=== PATIENT | female | born 1970 | race Caucasian/White ===

== ENCOUNTER → 2016-11-01 16:26 | Outpatient (CLI) | payer BC | END | disposition home or self-care (01) | LOC: D.MAMMO 08:15 | DX: Z12.31 Encounter for screening mammogram for malignant neoplasm of breast (principal) ==

== ENCOUNTER 2016-12-27 08:37 | Outpatient (CLI) | payer BC | END 2016-12-27 13:20 | LOC: D.MAMMO 08:37 | DX: R92.8 Other abnormal and inconclusive findings on diagnostic imaging of breast (principal) ==

== ENCOUNTER → 2017-06-30 13:44 | Outpatient (CLI) | payer BC | END | disposition home or self-care (01) | LOC: D.MAMMO 09:30 | DX: R92.8 Other abnormal and inconclusive findings on diagnostic imaging of breast (principal) ==

== ENCOUNTER 2018-01-05 08:00 | Outpatient (CLI) | payer BC | END 2018-01-05 09:00 | disposition home or self-care (01) | LOC: D.MAMMO 08:00 | DX: R92.8 Other abnormal and inconclusive findings on diagnostic imaging of breast (principal) ==

== ENCOUNTER → 2019-02-05 08:45 | Outpatient (CLI) | payer OTHER | END | disposition home or self-care (01) | LOC: D.RAD 08:45 | PROVIDERS: ATTEND Family Medicine | DX: R13.10 Dysphagia, unspecified (principal) ==

== ENCOUNTER 2019-07-02 05:35 | Day surgery (SDC) | payer OTHER ==
[~2019-07-02] VITALS: Ht 170.2 cm; Wt 111.8 kg
[~2019-07-02 05:35] MED LIST: CLARITIN 10 MG10 MG PO; HYZAAR 50-12.51 TAB PO; OMEPRAZOLE20 M1 PO; SINGULAIR10 MG
[2019-07-02 06:11] LABS: HEMATOCRIT 41.6 % (36.0-48.0); HEMOGLOBIN 14.2 g/dL (12-16); MCH 30.9 pg (26.0-34.0); MCHC 34.1 g/dL (31.0-37.0); MCV 90.4 fL (80.0-100.0); MEAN PLATELET VOLUME 9.7 fL (7.4-10.4); RBC 4.6 10x6/uL (4.00-5.40); RDW 12.3 % (11.5-14.5); WBC 7.5 10x3/uL (4.8-10.8)
[2019-07-02 07:14] VITALS: BP 122/58; BMI 38.6
[2019-07-02 07:39] LABS: HCG URINE NEGATIVE (NEGATIVE)
[2019-07-02 07:40] VITALS: BP 122/58; Ht 170.2 cm; Wt 111.8 kg
--- NOTE | 2019-07-02 10:44 | NUR ---
CARE TEMPORARILY TRANSFERRED TO MICHELLE VENTURA RN
--- NOTE | 2019-07-02 10:46 | NUR ---
CARE ASSUMED FROM YASMINE HILL RN
--- NOTE | 2019-07-02 16:51 | OP ---
PATIENT NAME: NOEMÍ PIZARRO MEDICAL RECORD: [id number] :70 LOCATION:D.OPS ADMISSION DATE: SURGEON: MIGUEL A HARMAN MD DATE OF OPERATION: 07/02/2019 PREOPERATIVE DIAGNOSES: 1. Intractably symptomatic external hemorrhoids. 2. Third degree anal prolapse. 3. Anal skin tag, which mimics a polypoid lesion. POSTOPERATIVE DIAGNOSES: 1. Intractably symptomatic external hemorrhoids. 2. Third degree anal prolapse. 3. Anal skin tag, which mimics a polypoid lesion. 4. Persistent anal prolapse after the procedure for prolapse and hemorrhoids. SURGEON: Miguel A Harman MD LIFE AGENT: None. BLOOD LOSS: 50 cc. ANESTHESIA: General. COMPLICATIONS: None. The risks, possible complications and alternatives to the procedure were explained to the patient. She elects to proceed. The discussion specifically included, but was not limited to, bleeding requiring emergency reoperation, infection, sphincteric rupture, anal stenosis. OPERATIVE COURSE: The patient was conveyed to the operating room electively on 07/02/2019. General anesthesia was induced by the anesthesia staff. The patient was placed in the lithotomy position. The buttocks were taped laterally. The anus and perianal areas were sterilely prepped and draped. U-shaped anal retractors were placed within the anus. There was no evidence of an anal fissure. No evidence of an anal fistula. A PPH dilator retractor was placed and sewn in place to the surrounding anoderm. I then placed a mucosal pursestring suture 1 cm cephalad to the clear retractor. The PPH stapling device was advanced and the anvil was cephalad to the pursestring suture, which was then tightened and tied. The stapling device was engaged. It was held in place for 2 minutes and then fired. It was then removed under direct vision. Bleeding along the anastomotic mucosal staple line was controlled with [id number] 3-0 Vicryl sutures. Despite the procedure for prolapse and hemorrhoids, there was still significant prolapse, particularly at the 11 and 5 o'clock positions and also a large skin tag at the 9 o'clock position. Skin tag was excised with the Harmonic scalpel and then I closed the anoderm with multiple interrupted horizontal mattress 3-0 Vicryls. At the 11 o'clock position and 5 o'clock position, I excised the hemorrhoidal columns. These were done in the following manner. A 3-0 Vicryl suture was placed at the apex of the internal hemorrhoid. Out on the anoderm, I OPERATIVE REPORT [id number] MOIRANOEMÍ Bret incised with the Harmonic scalpel. I swept down the external sphincter and the internal sphincter. I then excised the hemorrhoidal column. Additional small hemorrhoidal tissue was removed in a piecemeal fashion with DeBakeys. Submucosal flaps were created sharply. At no time was there any apparent sphincteric injury during the procedure. Both hemorrhoidectomy sites were closed with a running locking 3-0 Vicryl suture for the anal mucosa and then I continued this 3-0 Vicryl out on to the anoderm and then tied. Gelfoam was applied within the anus and lower rectum. A combination of steroid preparation and a long acting local anesthetic was used to infiltrate the perianal tissues. A topical anesthetic cream was applied to the external hemorrhoids. The patient was then extubated and conveyed to post-anesthesia care unit. Discharge instructions have been given to the family member. She is going to be dismissed home on hydrocodone as well as Valium and Colace. I will see her in the office in 2-3 weeks. TRANSINT:[id number] Voice Confirmation ID: [id number] DOCUMENT ID: [id number] MIGUEL A HARMAN MD at 1654 CC: KAYLA STAPLES and ZBIGNIEW PEPPER APN [id number] DICTATION DATE: 07/02/19 1055 WIRE STRETCHER: 07/02/19 1422 [facility] 07/02/19 [id number] [place] [address]
== END 2019-07-02 12:45 | disposition home or self-care (01) ==
LOC: D.OPS 05:35 → D.PAN 08:00 → D.OPS 12:45
PROVIDERS: Anesthesiology; ATTEND Surgery
DX: K62.2 Anal prolapse (principal); K64.4 Residual hemorrhoidal skin tags; J45.909 Unspecified asthma, uncomplicated

== ENCOUNTER → 2020-10-27 20:20 | Outpatient (CLI) | payer OTHER ==
[2019-07-02 07:40] VITALS: BMI 38.6
== END | disposition home or self-care (01) ==
LOC: D.MAMMO 10:30
PROVIDERS: ATTEND Nurse Practitioner
DX: R92.0 Mammographic microcalcification found on diagnostic imaging of breast (principal)